=== PATIENT | male | born 1990 | race Caucasian/White ===

== ENCOUNTER 2022-06-20 18:00 | Outpatient (CLI) | payer BC | END 2022-06-20 18:01 | disposition home or self-care (01) | LOC: SLEEPLAB 18:00 | PROVIDERS: ATTEND Specialist | DX: G47.33 Obstructive sleep apnea (adult) (pediatric) (principal); E66.9 Obesity, unspecified; J32.9 Chronic sinusitis, unspecified; Z68.37 Body mass index [BMI] 37.0-37.9, adult | CPT/HCPCS: 95800 ==